=== PATIENT | male | born 2005 | race Two or more races ===

== ENCOUNTER 2023-03-05 08:32 | Emergency (ER) | payer BC, MEDICAID, SELFPAY ==
--- NOTE | ~2023-03-05 | XR_ITS ---
EXAMINATION: XR WRIST, LEFT CLINICAL INFORMATION: Pain after trauma COMPARISON: None available. TECHNIQUE: PA, lateral, and oblique views of the left wrist. FINDINGS: Distal radius, ulna and radioulnar joint are intact. Carpal bones have normal alignment. The joint spaces of the wrist are normal. There is an acute fracture through the scaphoid waist and a small minimally displaced cortical fragment is visible. Otherwise, carpal bones are normal. XR/XR wrist LT min 3V IMPRESSION: Acute fracture of the scaphoid waist is not significantly displaced.
[2023-03-05 08:36] VITALS: BP 116/64; PULSE 68; RESP 18; TEMP 36.6; O2SAT 98; BMI 21.2
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
--- NOTE | 2023-03-05 11:07 | MHC.EDTECH ---
thumb spica splint was placed by this tech. provider aware and checked for splint placement.
--- NOTE | 2023-03-05 11:13 | PC.NURSE ---
PT WAS PLACED IN A SPLINT WITH [facility] POST APPLICATION PLAN FOR ORTHO CONSULT
== END 2023-03-05 11:16 | disposition home or self-care (01) ==
PROVIDERS: Emergency Provider Emergency Medicine
DX: S62.002A Unspecified fracture of navicular [scaphoid] bone of left wrist, initial encounter for closed fracture (principal); V19.9XXA Pedal cyclist (driver) (passenger) injured in unspecified traffic accident, initial encounter; Y93.9 Activity, unspecified; Y92.480 Sidewalk as the place of occurrence of the external cause; Y99.9 Unspecified external cause status
CPT/HCPCS: 29125; 73110; 99282; 99284

== ENCOUNTER 2023-03-11 07:07 | Outpatient (REF) | payer BC, MEDICAID, SELFPAY ==
--- NOTE | ~2023-03-11 | XR_ITS ---
EXAMINATION: Left wrist x-ray CLINICAL INFORMATION: Fracture COMPARISON: Previous x-ray 03/05/2023 TECHNIQUE: 4 views of the left wrist FINDINGS: Fracture of the waist of the scaphoid bone is unchanged. No other fracture. Normal joint spaces. Normal soft tissues. XR/XR wrist LT w scaphoid IMPRESSION: No change in scaphoid fracture.
== END 2023-03-11 07:08 | disposition home or self-care (01) ==
LOC: HO.HOSX 07:07
PROVIDERS: Visit Provider Physician Assistant
DX: S62.002A Unspecified fracture of navicular [scaphoid] bone of left wrist, initial encounter for closed fracture (principal)
CPT/HCPCS: 25622; 29085; 73110

== ENCOUNTER 2023-04-01 06:26 | Outpatient (REF) | payer BC, SELFPAY ==
--- NOTE | ~2023-04-01 | XR_ITS ---
EXAMINATION: Left wrist with scaphoid CLINICAL INFORMATION: Fracture COMPARISON: Previous x-rays February 2023 TECHNIQUE: 4 views of the left wrist FINDINGS: There is no change in the fracture of the waist of the scaphoid bone from previous exams. No other fracture. Normal joint spaces. Normal soft tissues. XR/XR wrist LT w scaphoid IMPRESSION: No change in scaphoid fracture.
== END 2023-04-01 06:27 | disposition home or self-care (01) ==
LOC: HO.HOSX 06:26
PROVIDERS: Visit Provider Physician Assistant
DX: S62.002D Unspecified fracture of navicular [scaphoid] bone of left wrist, subsequent encounter for fracture with routine healing (principal)
CPT/HCPCS: 73110

== ENCOUNTER 2023-05-13 12:19 | Outpatient (REF) | payer MEDICAID, SELFPAY ==
--- NOTE | ~2023-05-13 | XR_ITS ---
EXAMINATION: XR wrist LT w scaphoid CLINICAL INFORMATION: Pain COMPARISON: Wrist radiographs 04/01/2023, 03/11/2023 TECHNIQUE: 4 views of the wrist XR/XR wrist LT w scaphoid FINDINGS/IMPRESSION: An seen is a nondisplaced fracture of the waist of the scaphoid bone not convincingly changed in alignment with persistent lucency of the fracture margin. Joint spaces are maintained. Soft tissues are unremarkable.
== END 2023-05-13 12:20 | disposition home or self-care (01) ==
LOC: HO.HOSX 12:19
PROVIDERS: Visit Provider Physician Assistant
DX: S62.002D Unspecified fracture of navicular [scaphoid] bone of left wrist, subsequent encounter for fracture with routine healing (principal)
CPT/HCPCS: 73110; 99212

== ENCOUNTER 2023-06-24 11:42 | Outpatient (REF) | payer MEDICAID, SELFPAY ==
--- NOTE | ~2023-06-24 | XR_ITS ---
EXAMINATION: XR wrist LT w scaphoid CLINICAL INFORMATION: Reason for Exam M25.532 - Pain in left wrist COMPARISON: Wrist radiographs 05/13/2023 TECHNIQUE: Four views of the wrist FINDINGS: Again seen is a nondisplaced fracture of the waist of the scaphoid bone not convincingly changed in alignment with the suggestion of some new bridging bony callus formation medially and persistent lucency of the fracture margins. Joint spaces are maintained without significant degenerative change. No soft tissue abnormality. XR/XR wrist LT w scaphoid IMPRESSION: Again seen is a nondisplaced fracture of the waist of the scaphoid bone not convincingly changed in alignment with the suggestion of some new bridging bony callus formation medially and persistent lucency of the fracture margins.
== END 2023-06-24 11:43 | disposition home or self-care (01) ==
LOC: HO.HOSX 11:42
PROVIDERS: Visit Provider Physician Assistant
DX: S62.002A Unspecified fracture of navicular [scaphoid] bone of left wrist, initial encounter for closed fracture (principal)
CPT/HCPCS: 73110; 99213

== ENCOUNTER 2023-06-24 12:06 | Outpatient (AMB) | payer MEDICAID, SELFPAY ==
--- NOTE | 2023-06-24 12:46 | A.OFFVIS_ITS ---
Intake Vital Signs 06/24/23 12:48 Height 5 ft 9 in Weight 144 lb BMI 21.3 Intake Visit Reasons: OV- LT wrist scaphoid bone fx, DOI 03/05/23 Intake Note: Kip is a 17 year old male who presents today for a follow up of left wrist scaphoid bone fracture, DOI 03/05/23.?Xrays updated in office. Patient reports he is doing well, denies pain. He discontinued using brace. Allergies No Known Allergies Allergy (Verified 06/24/23 12:48) HPI OV- LT wrist scaphoid bone fx, DOI 03/05/23 HPI Details 17-year-old male who returns to the office today for a follow-up of left wrist scaphoid bone fracture 03/05/23. He states he has no pain and is doing well overall. He has discontinued using the brace. He has no concerns today. [facility], [facility] Social History Patient Tobacco Use Status: Current someday Tobacco user Current occupational status: student Current occupation: [employer], right handed Review of Systems Const All systems reviewed & are unremarkable except as noted in HPI and below Physical Exam Vital Signs: BMI result Body Mass Index 21.3 Const General: cooperative, healthy appearing, comfortable, no acute distress, well developed and alert Orientation/consciousness: patient oriented x3 HEENT Head: Yes normal to inspection, Yes normocephalic and Yes atraumatic Eyes General: appearance normal, both eyes and all related structures Resp Effort & Inspection: normal respiratory effort and able to speak in complete sentences Cardio Rate: regular rate Peripheral pulses: Peripheral pulses 2+ throughout GI Palpation (GI): Soft to palpation Skin Lesions: no lesions Rashes: no rashes Neuro General: patient oriented x3 Extrem Other: Left hand normal to inspection. No swelling at the base of the thumb around the anatomical snuffbox to the thenar eminence. No tenderness to palpation and full ROM of hand and wrist. Full ROM of wrist and finger. He is able to perform opposition and abduction of wrist without pain. NVI. Results Reviewed Results Reviewed: Xrays were obtained in the office today and personally reviewed by me of the left wrist with scaphoid view significant for scaphoid fracture through the waist with what appears to be a non-union Assessment & Plan Assessment & Plan (1) Fracture of scaphoid bone of left wrist: Code(s): S62.002A - Unspecified fracture of navicular [scaphoid] bone of left wrist, initial encounter for closed fracture Plan Images were reviewed with Dr. Wong in the office today. 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 I did review the x-rays images with the patient and explained to him the findings which he again reinforced no interest in surgical intervention. I explain to him that treating this without surgical intervention would lead to worsening non-union and weakening of the bone where it will fall apart and which would lead to collapse of the carpal bone and also arthritis and significantly limiting his function with that hand. He does express understanding but is not concerned about this. At this time as there is nothing more non operatively to pursue with him, he does not need to return to office unless he has any questions or concerns. Orders: Orders XR wrist LT w scaphoid Today M25.532 - Pain in left wrist Patient Instructions: Scribed for Alfonzo Berger PA-C, by Nacho Patterson medical collections specialist, on 06/24/2023 at 12:45 PM EST. I, Alfonzo Berger PA-C, have personally reviewed and agree with the information entered by the scribe. Coding Level of Care Code Est Pt Level 3 (07429) Diagnoses Fracture of scaphoid bone of left wrist S62.002A
[2023-06-24 12:48] VITALS: BMI 21.3
== END 2023-06-24 13:40 | disposition home or self-care (01) ==
PROVIDERS: Visit Provider Physician Assistant
DX: S62.002A Unspecified fracture of navicular [scaphoid] bone of left wrist, initial encounter for closed fracture (principal)
CPT/HCPCS: 99213